=== PATIENT | male | born 1990 | race African-American/Black ===

== ENCOUNTER 2020-06-22 11:46 | Emergency (ER) | payer SELFPAY ==
[~2020-06-22] VITALS: Ht 185.4 cm; Wt 68.3 kg
[2020-06-22] MEDS ORDERED: LIDOCAINE 2%/EPI 1:100,000 20 ML VIAL. ONE (11:58)
[2020-06-22 11:59] VITALS: BP 169/64
[2020-06-22] MEDS ORDERED: LIDOCAINE 2%/EPI 1:100,000 20 ML VIAL. IJ ONE (12:00)
[2020-06-22] MEDS ORDERED: NEOMY/BACITR/POLYMYXIN OINT PACKET. TP ONE (12:00)
--- NOTE | 2020-06-22 12:11 | PHYS DOC ---
Past History Past Medical History: No Pertinent History Past Surgical History: No Surgical History Alcohol Use: None General Adult EDM: Chief Complaint: FINGER INJURY HPI: HPI: Patient is a 29 year old M who presents with laceration to his R ring finger and finger pain after slamming his hand in a door at home. He states the pain is a constant throbbing that he rates a 7/10. He does report some tingling to his fingers on his right hand but states he is able to move all fingers. He is up to date on his tetanus. Review of Systems: Review of Systems: Constitutional: Denies fever or chills Eyes: Denies redness or eye pain HENT: Denies nasal congestion or sore throat Respiratory: Denies cough or shortness of breath Cardiovascular: Denies chest pain or palpitations GI: Denies abdominal pain, nausea, or vomiting : Denies dysuria or hematuria Musculoskeletal: Denies back pain or joint pain Integument: Denies rash or skin lesions Neurologic: Denies headache or focal weakness Complete systems were reviewed and found to be within normal limits, except as documented in this note. Current Medications: Current Meds: Current Medications Medications (Trade) Dose Ordered Sig/Birgit Start Time Stop Time Status Last Admin Dose Admin Lidocaine/ Epinephrine (Xylocaine 2%-Epi 1:100,000) 20 ml STK-MED ONCE 06/22/20 11:58 06/22/20 11:58 DC Neomycin/ Polymyxin/ Bacitracin (Triple Antibiotic Ointment) 1 pkt 1X ONCE 06/22/20 12:00 06/22/20 12:01 DC Allergies: Allergies: Allergies Coded Allergies Type Severity Reaction Last Updated Verified No Known Drug Allergies 06/22/20 No Physical Exam: PE: Constitutional: Well developed, well nourished HENT: Normocephalic, atraumatic Eyes: Conjunctiva normal, no discharge Neck: Normal range of motion, supple Lungs & Thorax: No respiratory distress, equal chest rise and fall Abdomen: Soft, no tenderness Skin: Warm, dry, no rash Back: No tenderness, no CVA tenderness Extremities: No edema. 2-2.5 cm laceration to the anterior R index finger. ROM intact b/l, sensory intact b/l. Neurologic: Alert and oriented X 3, no focal deficits noted Psychologic: Affect normal, judgment normal Current Patient Data: Vital Signs: Vital Signs Date Time Temp Pulse Resp B/P (MAP) Pulse Ox O2 Delivery O2 Flow Rate FiO2 06/22/20 11:59 98.2 58 16 169/64 (99) 99 Room Air EKG: EKG: [] Radiology/Procedures: Radiology/Procedures: PROCEDURE: HAND RIGHT 3V HAND RIGHT 3V History: Reason: right 4th digit crush injury/laceration / Spl. Instructions: / History: Technique: 3 views right hand. Comparison: None. Findings: Acute nondisplaced fourth distal tuft fracture. There is overlying soft tissue swelling and gas. Normal alignment. No additional fracture. Impression: 1. Acute nondisplaced fourth distal tuft fracture overlying soft tissue injury. Electronically signed by: Reggie Rivers DO (06/22/2020 12:14 PM) [id number] Course & Med Decision Making: Course & Med Decision Making Pertinent Labs and Imaging studies reviewed. (See chart for details) [] Dragon Disclaimer: Dragon Disclaimer: This electronic medical record was generated, in whole or in part, using a voice recognition dictation system. Departure Departure: Impression: Primary Impression: Subungual hematoma of finger of right hand Qualified Codes: S60.10XA - Contusion of unspecified finger with damage to nail, initial encounter Additional Impressions: Laceration of finger of right hand Qualified Codes: S61.214A - Laceration without foreign body of right ring finger without damage to nail, initial encounter Open fracture of tuft of distal phalanx of finger Disposition: 01 HOME/RESIDENCE PRIOR TO ADM Condition: STABLE Referrals: PCP,NO (PCP) Patient Instructions: Crush Injury, Fingers or Toes, [id number], Finger Fracture, [id number], Laceration Care, Adult, Mcgb-ci-Ssee, Subungual Hematoma , [id number] Scripts Hydrocodone Bit/Acetaminophen (NORCO 5-325 TABLET) 1 Each Tablet 0.5-1 TAB PO Q6HRS PRN for PAIN, #14 TAB Prov: NIEVES BRIDGES DO 06/22/20 Cephalexin (KEFLEX) 500 Mg Capsule 1 CAP PO QID for Open fracture for 7 Days, #28 CAP 0 Refills Prov: NIEVES BRIDGES DO 06/22/20 Laceration/Wound Repair Laceration/Wound Repair : Wound Location: upper extremity Wound's Depth, Shape: superficial Wound Explored: clean Irrigated w/ Saline (ccs): 200 Anesthesia: Lidocaine w/ Epi (2%) Wound Debrided: minimal Wound Repaired With: sutures Suture Size/Type: 4:0 Number of Sutures: 7 Sterile Dressing Applied?: Yes Splint Applied?: Yes Type of Splint Applied: finger splint Sling Applied?: No Nail Trepanation Nail Trepanation : Nail Trepanation Location: R ring finger Method of Drainage: nail cauterized Sterile Dressing Applied: Yes Finger Splint: Yes NIEVES BRIDGES DO Jun 22, 2020 12:10
--- NOTE | 2020-06-22 12:17 | RAD ---
HAND RIGHT 3V History: Reason: right 4th digit crush injury/laceration / Spl. Instructions: / History: Technique: 3 views right hand. Comparison: None. Findings: Acute nondisplaced fourth distal tuft fracture. There is overlying soft tissue swelling and gas. Normal alignment. No additional fracture. Impression: 1. Acute nondisplaced fourth distal tuft fracture overlying soft tissue injury. Electronically signed by: Reggie Rivers DO (06/22/2020 12:14 PM) [id number]
[2020-06-22] MEDS ORDERED: CEPHALEXIN 250 MG CAPSULE PO ONE (12:30)
[2020-06-22] MEDS ORDERED: HYDR-3165 PO (14:32)
[2020-06-22] MEDS ORDERED: CEPH-264 PO (14:32)
== END 2020-06-22 14:55 | disposition home or self-care (01) ==
LOC: ER 11:46
DX: S62.664B Nondisplaced fracture of distal phalanx of right ring finger, initial encounter for open fracture (principal); W23.0XXA Caught, crushed, jammed, or pinched between moving objects, initial encounter; Y93.89 Activity, other specified; Y92.89 Other specified places as the place of occurrence of the external cause; Y99.8 Other external cause status
CPT/HCPCS: 11730; 12001; 29130; 73130; 99284

== ENCOUNTER 2021-06-17 17:57 | Emergency (ER) | payer SELFPAY ==
[~2021-06-17] VITALS: Ht 170.2 cm; Wt 68.0 kg
[~2021-06-17 17:57] MED LIST: CEPH-264 PO; HYDR-3165 PO
[2021-06-17 18:17] VITALS: BP 153/75
--- NOTE | 2021-06-17 18:18 | PHYS DOC ---
Past History Past Medical History: No Pertinent History Past Surgical History: No Surgical History Smoking: Non-smoker Alcohol Use: None Drug Use: None Adult General Chief Complaint Chief Complaint: LOWER EXT PAIN HPI HPI Patient is a 30-year-old male presenting via police custody for medical clearance exam. Patient was reportedly running from police for prior hour and when he got caught, he requested to be seen for medical evaluation. Patient denies any significant falls, no loss of consciousness, he denies any medical issues and takes no medications on a daily basis specifically no blood thinners. He smokes weed and tobacco, drank a few drinks of Cognac, no other illicit drug use in past 24 hours. On arrival, he has no complaints. Review of Systems Review of Systems Fourteen body systems of review of systems have been reviewed. See HPI for pertinent positives and negative responses, other camacho all other systems are negative, non-pertinent or non-contributory Allergies Allergies Allergies Coded Allergies Type Severity Reaction Last Updated Verified No Known Drug Allergies 06/22/20 No Physical Exam Physical Exam Constitutional: Pt is oriented to person, place, and time. Pt appears well-developed and well- nourished. He is age-appropriate and smells of marijuana HEENT: Head: Normocephalic and atraumatic. TMs clear, no hemotympanum Conjunctivae and EOM are normal. Pupils are equal, round, and reactive to light. Oropharynx is clear and moist. No hematomas or lacerations to face or scalp. He does have a mild abrasion to the left side of his [place]om[place]'s apple OP clear, no blood, no malocclusion, dentition intact Nares clear, no nasal septal hematoma Midface stable Neck: C-spine midline nontender, no step-offs Cardiovascular: Normal rate, regular rhythm and normal heart sounds. Pulmonary/Chest: Effort normal and breath sounds normal. No respiratory distress. No wheezes. CTA bilaterally Abdominal: Soft. Bowel sounds are normal. Pt exhibits no distension. There is no tenderness. Musculoskeletal: No bony tenderness to extremities, no deformities, full ROM extremities Chest wall stable Pelvis stable and non-tender No vertebral TTP and spine without stepoffs Neurological: Pt is alert and oriented to person, place, and time. Moving all extremities willfully, able to wiggle all fingers and toes Alert and oriented x 3 Motor and sensory function fully intact Cranial nerves II through XII intact No saddle anesthesia Skin: Skin is warm and dry. No no significant lacerations, patient does have minute abrasion to bilateral lower extremities Psychiatric: Behavior is appropriate for situation EKG EKG [] Radiology/Procedures Radiology/Procedures [] Heart Score C/O Chest Pain: No Risk Factors: Risk Factors: DM, Current or recent (<one month) smoker, HTN, HLP, family history of CAD, obesity. Risk Scores: Risk Factors: DM, Current or recent (<one month) smoker, HTN, HLP, family history of CAD, obesity. Course & Med Decision Making Course & Med Decision Making ABCs unremarkable HPI and physical exam nonconcerning for any emergent or surgical issues Patient has no significant past medical history, does admit tobacco marijuana and alcohol use today but without any falls or other significant trauma, patient is unsure why he asked to come here. He is fine with medical clearance at this time without further work-up At this time in care, no indication for further diagnostic work-up based on appearance of patient. Patient to be discharged back into police custody Guillaume Disclaimer Guillaume Disclaimer This electronic medical record was generated, in whole or in part, using a voice recognition dictation system. Departure Departure: Impression: Primary Impression: Medical clearance for incarceration Disposition: HOME / SELF CARE / HOMELESS Condition: STABLE Referrals: PCP,NO (PCP) LEONARDA TATE DO Jun 17, 2021 18:18
== END 2021-06-17 18:25 | disposition home or self-care (01) ==
LOC: ER 17:57
DX: Z02.2 Encounter for examination for admission to residential institution (principal)
CPT/HCPCS: 99281